=== PATIENT | male | born 1940 | race Caucasian/White ===

== ENCOUNTER 2024-03-06 10:21 | Day surgery (SDC) | payer MEDICARE, BC ==
[2024-03-03 15:34] VITALS: BMI 21.1
[2024-03-06 11:42] LABS: #Basophils 0.04 10x3/uL (0.0-0.2); %Basophils 0.6 % (0.0-1.0); %Eosinophils 1.2 % (0.0-10.0); %Lymphocytes 34.4 % (21.0-51.0); %Monocytes 10.4 % (0.0-10.0); %Neutrophils 53.3 % (42.0-75.0); Hematocrit 50.9 % (42.0-52.0); Hemoglobin 17.2 g/dL (14.0-18.0); Mean Corpuscular HGB CONC 33.8 g/dL (32.0-36.0); Mean Corpuscular Hemoglobin 32.3 pg (27.0-31.0); Mean Corpuscular Volume 95.7 fL (78.0-98.0); Mean Platelet Volume 11.5 fL (7.4-10.4); Platelet Count 205 10x3/uL (130-400); RBC Distribution Width 13.8 % (11.5-14.5); Red Blood Cell (RBC) Count 5.32 mill/uL (4.70-6.10)
[2024-03-06] MEDS ORDERED: Heparin 5,000 UNITS/ML VIAL ONE (11:50)
[2024-03-06 12:00] LABS: Anion Gap 13 mmol/L (10-20); BUN (Urea Nitrogen) 14 mg/dL (8.4-25.7); Calc. Creatinine Clearance 49 mL/min (70-130); Carbon Dioxide 28 mmol/L (23-31); Chloride 107 mmol/L (98-107); Estimated GFR 61; Glucose 88 mg/dL (83-110); Potassium 4.6 mmol/L (3.5-5.1); Sodium 143 mmol/L (136-145)
[2024-03-06] MEDS ORDERED: Lidocaine 1% PF 5 ML VIAL ONE (12:11)
[2024-03-06] MEDS ORDERED: fentaNYL PF 100 MCG/2 ML SYRINGE ONE (12:11)
[2024-03-06] MEDS ORDERED: Rocuronium Bromide 10 MG/ML (10ML VIAL) ONE (12:11)
[2024-03-06] MEDS ORDERED: PROPOFOL 20 ML ONE (12:11)
[2024-03-06] MEDS ORDERED: Dexamethasone 4 mg/ml Vial ONE (12:11)
[2024-03-06] MEDS ORDERED: Ondansetron PF 4 MG/2 ML Vial ONE ×2 (12:11→14:15)
[2024-03-06] MEDS ORDERED: EPINEPHrine 1 MG/ML VIAL ONE (12:21)
[2024-03-06] MEDS ORDERED: Bupivacaine 0.25% HCL 30 ML VIAL ONE (12:21)
[2024-03-06] MEDS ORDERED: Bacitracin Zinc Ointment 30 gm TUBE ONE (12:21)
[2024-03-06] MEDS ORDERED: CEFAZOLIN 2 GM VIAL ONE (12:32)
[2024-03-06] MEDS ORDERED: Sodium Chloride 0.9% 100 ML ONE (12:32)
[2024-03-06] MEDS ORDERED: PHENYLEPHRINE-NS 100 MCG/ML 10 ML SYRINGE ONE (12:58)
[2024-03-06] MEDS ORDERED: ePHEDrine Sulfate 50 MG/10 ML VIAL ONE (12:58)
[2024-03-06] MEDS ORDERED: Vasopressin 20 UNITS/ML VIAL ONE (13:02)
[2024-03-06] MEDS ORDERED: Dexamethasone 20 MG/5 ML VIAL ONE (14:15)
[2024-03-06] MEDS ORDERED: NEOSTIGMINE 3 MG/3 ML SYRINGE ONE ×2 (14:37)
[2024-03-06] MEDS ORDERED: GLYCOPYRROLATE/PF 0.2 MG/ML VIAL ONE (14:37)
[2024-03-06] MEDS ORDERED: HYDROcodone/Acetaminophen 5/325 mg Tablet ONE (15:59)
== END 2024-03-06 16:10 ==
LOC: SDC 10:21
PROVIDERS: ATTEND Plastic Surgery
PROC: 0HR1X73 Replacement of Face Skin with Autologous Tissue Substitute, Full Thickness, External Approach (ICD-10-PCS; principal; 2024-03-06)
DX: L90.5 Scar conditions and fibrosis of skin (principal); L85.9 Epidermal thickening, unspecified; J31.0 Chronic rhinitis
CPT/HCPCS: 11443; 15260; 80048; 85025; 93005; J0171; J0665; J1100 ×2; J1644; J2405; J2704; J3490 ×2; 88305; 88331; 88332; 93010